=== PATIENT | female | born 1950 | race Caucasian/White ===

== ENCOUNTER 2017-08-04 13:24 | Inpatient (IN) | payer MEDICARE ==
--- NOTE | 2017-08-04 14:24 | XR ---
EXAMINATION TYPE: XR chest 2V DATE OF EXAM: 08/04/2017 COMPARISON: Chest x-ray August 14, 2016 HISTORY: History of COPD with chest pain and shortness of breath TECHNIQUE: Frontal and lateral views of the chest are obtained. FINDINGS: There is background chronic emphysematous change with left infrahilar scarring in bibasilar scarring and/or atelectasis redemonstrated. There is no no suspicious focal air space opacity, pleu ral effusion, or pneumothorax seen. The cardiac silhouette size is stable and upper limits of normal . There is partial visualization of surgical hardware in the right proximal humerus. IMPRESSION: Chronic emphysematous change with left lung scarring, no suspicious new acute pulmonary process.
[2017-08-04] MEDS ORDERED: ACETAMINOPHEN TAB 325 MG TAB PO PRN (14:45)
[2017-08-04] MEDS ORDERED: NALOXONE 0.4 MG/ML 1 ML VIAL IV PRN (14:45)
--- NOTE | 2017-08-04 14:56 | ED ---
General Adult HPI - General Chief complaint: Chest Pain Stated complaint: chest pain Time Seen by Provider: 08/04/17 13:28 Source: patient, RN notes reviewed, old records reviewed Mode of arrival: EMS Limitations: no limitations - History of Present Illness Initial comments: 66-year-old female transferred from outside hospital for evaluation of chest pain. Patient's pain began this morning. It is resolved at the time my evaluation. She describes it as substernal chest pain radiating to her jaw. Patient did have calmed. Recent medical history including intubation for what appears to be flash pulmonary edema and ST segment elevated NE. This EKG is not available for review of his obtained at outside hospital and she was transferred to [facility] in [place]. She was in the ICU for several days. She was successfully extubated and it was recommended that the patient undergo heart catheterization. She refused heart cath at that time. She was also diagnosed with pneumonia and treated. She denies cough. She has had some mild dyspnea which she attributes to her chronic COPD. She does have past medical history of congestive heart failure. - Related Data Home Medications Medication Instructions Recorded Confirmed ALPRAZolam [Xanax] 0.5 mg PO BID PRN 08/04/17 08/04/17 Acetaminophen Tab [Tylenol Tab] 500 mg PO Q6H PRN 08/04/17 08/04/17 Budesonide [Pulmicort] 0.5 mg INHALATION RT-BID 08/04/17 08/04/17 Cyanocobalamin (Vitamin B-12) 1,000 mcg PO DAILY 08/04/17 08/04/17 [Vitamin B-12] Ergocalciferol [Vitamin D2] 50,000 unit PO TU 08/04/17 08/04/17 Furosemide [Lasix] 20 mg PO DAILY 08/04/17 08/04/17 Gabapentin [Neurontin] 300 mg PO BID 08/04/17 08/04/17 Ipratropium-Albuterol Nebulize 3 ml INHALATION RT-BID 08/04/17 08/04/17 [Duoneb 0.5 mg-3 mg/3 ml Soln] Metoprolol Tartrate [Lopressor] 25 mg PO BID 08/04/17 08/04/17 predniSONE 10 mg PO DIRECTED 08/04/17 08/04/17 predniSONE See Taper PO DAILY 08/04/17 08/04/17 traMADol HCl [Ultram] 50 mg PO BID 08/04/17 08/04/17 Allergies Allergy/AdvReac Type Severity Reaction Status Date / Time codeine Allergy Rash/Hives Verified 08/04/17 14:27 Penicillins AdvReac Unknown Verified 08/04/17 14:27 Childhood Review of Systems ROS Statement: Those systems with pertinent positive or pertinent negative responses have been documented in the HPI. ROS Other: All systems not noted in ROS Statement are negative. 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 Absent: tenderness, meningismus Respiratory exam: Present: decreased breath sounds. Absent: respiratory distress, wheezes, rales Cardiovascular Exam: Present: regular rate, normal rhythm GI/Abdominal exam: Present: soft. Absent: distended, tenderness, guarding Extremities exam: Present: pedal edema (trace) Neurological exam: Present: alert, oriented X3, CN II-XII intact. Absent: motor sensory deficit Psychiatric exam: Present: normal affect, normal mood Skin exam: Present: warm, dry, intact. Absent: cyanosis, diaphoretic Course Vital Signs 08/04/17 08/04/17 13:27 14:31 Temperature 98.1 F Pulse Rate 74 68 Respiratory 24 20 Rate Blood Pressure 159/76 115/63 O2 Sat by Pulse 87 L 97 Oximetry - Reevaluation(s) Reevaluation #1: 08/04/17 14:53 Patient is chest pain-free while in the emergency department. EKG Findings - EKG Comments: EKG Findings:: EKG normal sinus rhythm, pulmonary disease pattern, incomplete right bundle, left anterior fascicular block, T-wave inversion in the lateral precordium. Rate of 76, CT interval 168, QRS duration 104, QTC 468. No ST segment depression. Medical Decision Making - Medical Decision Making 66-year-old female presenting for evaluation of chest pain from outside hospital. Patient was given aspirin, nitroglycerin, Lasix and started on heparin prior to transfer. Initial troponin was negative. There was a mild elevation in the BMP cording to the transferring physician. Chest x-ray showed CHF, this was repeated and shows no pulmonary edema, there is concern for COPD on x-ray. Patient had lateral EKG changes which are persistent on repeat EKG in the emergency department here. All laboratory studies will be repeated including troponin. Patient will be kept on heparin. Case is discussed with Dr. Valderrama, he will accept admission. Cardiology placed on consult. Disposition Clinical Impression: Unstable angina pectoris Disposition: ADMITTED IP TO THIS HOSP Condition: Stable Is patient prescribed a controlled substance at d/c from ED?: No Referrals: Arsh Dunn MD [Primary Care Provider] - 1-2 days Decision to Admit Reason: Admit from EC Decision Date: 08/04/17 Decision Time: 14:55
[2017-08-04 15:09] LABS: Basophils # (A) 0.1 k/uL (0-0.2); Basophils % (A) 0 %; Eosinophils # (A) 0.2 k/uL (0-0.7); Eosinophils % (A) 1 %; HCT 41.5 % (34.0-46.0); HGB 13.1 gm/dL (11.4-16.0); Hypochromasia Slight; Lymphocytes # (A) 2.8 k/uL (1.0-4.8); Lymphocytes % (A) 18 %; MCH 27.9 pg (25.0-35.0); MCHC 31.5 g/dL (31.0-37.0); MCV 88.5 fL (80.0-100.0); Mean Platelet Volume 6.7; Monocytes % (A) 6 %; Neutrophils # (A) 11.5 k/uL (1.3-7.7); Neutrophils % (A) 74 %; Platelet Count 302 k/uL (150-450); RBC 4.69 m/uL (3.80-5.40); RDW 14.9 % (11.5-15.5); WBC 15.6 k/uL (3.8-10.6)
[2017-08-04 15:22] LABS: ALT 57 U/L (9-52); AST 23 U/L (14-36); Albumin 3.9 g/dL (3.5-5.0); Alkaline Phosphatase 61 U/L (38-126); Blood Urea Nitrogen 24 mg/dL (7-17); Calcium 9.1 mg/dL (8.4-10.2); Chloride 91 mmol/L (98-107); Glucose 82 mg/dL (74-99); Magnesium 2.3 mg/dL (1.6-2.3); Partial Thromboplastin Time 23.6 sec (22.0-30.0); Prothrombin Time 10.1 sec (9.0-12.0); Sodium 139 mmol/L (137-145); Total Bilirubin 0.7 mg/dL (0.2-1.3); Total Protein 6.1 g/dL (6.3-8.2)
[2017-08-04 15:29] LABS: Anion Gap 7 mmol/L
[2017-08-04] MEDS: HEPARIN SODIUM,PORCINE 5,000 UNIT/ML 1 ML VIAL IV PRN ×2 (15:33→22:06)
[2017-08-04 15:34] LABS: Creatine Kinase MB 1.5 ng/mL (0.0-2.4); Troponin I 0.03 ng/mL (0.000-0.034)
[2017-08-04] MEDS: HEPARIN SODIUM,PORCINE/D5W PMX 25,000 UNIT in DEXTROSE/WATER 1 500ML.BAG IV SCH (15:34)
[2017-08-04 15:35] LABS: Carbon Dioxide 41 mmol/L (22-30)
[2017-08-04] MEDS ORDERED: ACETAMINOPHEN TAB 500 MG TAB PO PRN (15:38)
[2017-08-04] MEDS ORDERED: ALPRAZolam 0.5 MG TAB PO PRN (15:38)
[2017-08-04] MEDS: predniSONE 10 MG TAB PO SCH (15:55)
[2017-08-04] MEDS: traMADol 50 MG TAB PO SCH ×2 (15:55→20:38)
[2017-08-04] MEDS: GABAPENTIN 300 MG CAP PO SCH ×2 (16:41→20:38)
[2017-08-04] MEDS: IPRATROPIUM-ALBUTEROL 3 ML NEB INHALATION SCH ×2 (19:31→22:44)
[2017-08-04] MEDS: METOPROLOL TARTRATE 25 MG TAB PO SCH (20:38)
[2017-08-04] MEDS ORDERED: traMADol 50 MG TAB PO SCH (21:00)
[2017-08-04] MEDS ORDERED: GABAPENTIN 300 MG CAP PO SCH (21:00)
[2017-08-04 21:42] LABS: Troponin I 0.03 ng/mL (0.000-0.034)
[2017-08-05 03:57] LABS: Basophils % (A) 0 %; Eosinophils # (A) 0.1 k/uL (0-0.7); Eosinophils % (A) 1 %; HCT 39.8 % (34.0-46.0); HGB 12.3 gm/dL (11.4-16.0); Hypochromasia Slight; Lymphocytes # (A) 1.3 k/uL (1.0-4.8); Lymphocytes % (A) 10 %; MCH 27.5 pg (25.0-35.0); MCHC 30.8 g/dL (31.0-37.0); MCV 89.2 fL (80.0-100.0); Mean Platelet Volume 6.5; Monocytes # (A) 0.7 k/uL (0-1.0); Monocytes % (A) 6 %; Neutrophils # (A) 10.2 k/uL (1.3-7.7); Neutrophils % (A) 82 %; Platelet Count 234 k/uL (150-450); RBC 4.46 m/uL (3.80-5.40); RDW 14.3 % (11.5-15.5); WBC 12.4 k/uL (3.8-10.6)
[2017-08-05 04:48] LABS: Creatine Kinase MB 2.6 ng/mL (0.0-2.4); Troponin I 0.037 ng/mL (0.000-0.034)
[2017-08-05] MEDS: IPRATROPIUM-ALBUTEROL 3 ML NEB INHALATION SCH ×2 (05:24→20:31)
[2017-08-05] MEDS: traMADol 50 MG TAB PO SCH ×2 (05:42→15:00)
[2017-08-05] MEDS: FUROSEMIDE 20 MG TAB PO SCH (08:39)
[2017-08-05] MEDS: METOPROLOL TARTRATE 25 MG TAB PO SCH ×2 (08:39→20:44)
[2017-08-05] MEDS: predniSONE 10 MG TAB PO SCH (08:39)
[2017-08-05] MEDS: GABAPENTIN 300 MG CAP PO SCH ×2 (08:39→20:44)
[2017-08-05] MEDS ORDERED: predniSONE 10 MG TAB PO SCH (09:00)
--- NOTE | 2017-08-05 11:11 | CONS ---
CONSULTATION Yina Nguyen is a 66-year-old female who presented from an outside institution with recurrent chest discomfort. The chest discomfort was substernal, radiated to the jaw and through into the back. A 12-lead ECG showed ST-T abnormalities in V3 to V6 consistent with ST elevation with T-wave inversions. First two cardiac enzymes are normal. Third troponin was borderline abnormal. The troponins and the EKG changes are out of proportion to the level of her troponin. She is pain-free at this time. She is on IV heparin. PAST HISTORY: Her past history most recently was in [facility] in [place] on 07/23/2017 for respiratory failure. She was diagnosed with pneumonia. She was on IV antibiotics. Subsequently, they recommended a coronary angiography, which she refused. She has a history of COPD, obesity. At the age of 4, she had surgery her aorta, but she does not know the diagnosis nor the details of this. She does have at least mild aortic stenosis. PAST SURGICAL HISTORY: section, shoulder surgery, open heart surgery at the age of 4 years details which are not available, history of cholecystectomy, history of obesity, morbid, BMI greater than 40. SOCIAL HISTORY: She stopped smoking 7 years back. No alcohol use. Past history also includes hypertension. PHYSICAL EXAMINATION: On examination, her blood pressure is elevated 149/76 and 162/70 mmHg. Heart rate is in the 70s. She is afebrile, 96.9 degrees Fahrenheit. She is on steroids. White count is mildly elevated. She is afebrile. Breath sounds are decreased bilaterally. Heart sounds S1, S2 soft. There is soft ejection systolic murmur. ABDOMEN: Soft. Extremities are warm. She is on IV heparin. LABS: Labs are reviewed. The white count is 15.6 thousand. She is on steroids. She recently had respiratory failure and pneumonia and was treated in [facility] last month. Sodium was normal. Potassium was normal. Bicarb was 41. Kidney function is normal. Liver functions are normal. Troponin was 0.03, followed by 0.03 and then . IMPRESSION: 1. Borderline abnormal troponins with significantly abnormal ECG and patient presenting with chest discomfort radiating through to her back into her jaw. 2. Past history of smoking. 3. Past history of reconstructive surgery of the aorta at the age of 4 years. Details not available. 4. At least mild aortic stenosis with normal left ventricular systolic function. No mitral regurgitation. 5. Morbid obesity. 6. Hypertension. 7. Chronic obstructive pulmonary disease. SUGGEST: 1. D-dimer first and if this is normal then I will schedule her for coronary angiography. 2. Hypertension management. I will start her on losartan 50 mg p.o. daily. She will continue beta blockers for now and baby aspirin. I will also add statins. MMODL / IJN: [id number] /
[2017-08-05] MEDS ORDERED: ALPRAZolam 0.25 MG TAB PO PRN (11:39)
[2017-08-05] MEDS ORDERED: SODIUM CHLORIDE 0.9% 1,000 ML in EMPTY BAG 1 BAG IV ONE (11:39)
[2017-08-05] MEDS ORDERED: NITROGLYCERIN SL TABS 0.4 MG TAB SUBLINGUAL PRN (11:39)
[2017-08-05] MEDS ORDERED: ALPRAZolam 0.5 MG TAB PO PRN (11:39)
[2017-08-05] MEDS: LOSARTAN 50 MG TAB PO SCH (11:42)
--- NOTE | 2017-08-05 12:33 | P.HPIM ---
History of Present Illness 66-year-old pleasant female came in with complains of a chest pain and pressure like sensation which started today morning nonradiating in the retrosternal area in the left side, denied any increasing shortness of breath patient does have COPD uses 3 pillows which is not new patient denied any paroxysmal nocturnal dyspnea patient denied any excessive sweating patient's face has a chest pain radiated to the jaw lasted for few hours not associated be breathing not associated with food. Patient was recently discharged from [facility] in [place] which she was admitted in ICU was intubated apparently had a pneumonia at the time was treated for respiratory failure and cardiorespiratory arrest from the patient's history, patient does have also independent COPD uses 2 L of oxygen at home. Patient at this point of time denied any cough runny nose chest x-ray did not show any pneumonic process. Patient apparently was told have a cardiac catheter sensation in [facility] at that time patient declined to get that test done. Patient denied any history of sleep apnea. Patient quit smoking years ago. EKG here showed T- wave inversion in the anterior leads lung with mildly elevated troponin of 0.03 cardiology evaluated the patient they recommending cardiac catheterization to be done tomorrow. Review of Systems REVIEW OF SYSTEMS: CONSTITUTIONAL: No fever, no malaise, no fatigue. HEENT: No recent visual problems or hearing problems. Denied any sore throat. CARDIOVASCULAR: No orthopnea, PND, no palpitations, no syncope. PULMONARY: No shortness of breath, no cough, no hemoptysis. GASTROINTESTINAL: No diarrhea, no nausea, no vomiting, no abdominal pain. Normoactive bowel sounds. NEUROLOGICAL: No headaches, no weakness, no numbness. HEMATOLOGICAL: Denies any bleeding or petechiae. GENITOURINARY: Denies any burning micturition, frequency, or urgency. MUSCULOSKELETAL/RHEUMATOLOGICAL: Denies any joint pain, swelling, or any muscle pain. ENDOCRINE: Denies any polyuria or polydipsia. The rest of the 14-point review of systems is negative. Past Medical History Past Medical History: Asthma, Coronary Artery Disease (CAD), Heart Failure, COPD , Fibromyalgia, Hyperlipidemia, Hypertension, Osteoarthritis (OA), Pneumonia Additional Past Medical History / Comment(s): home o2 2- 2.5 liters nc. 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4) History of Any Multi-Drug Resistant Organisms: None Reported Past Surgical History: Section, Cholecystectomy, Coronary Bypass/CABG Additional Past Surgical History / Comment(s): was cross eyed-had sx to correct , x2 c-sections Past Anesthesia/Blood Transfusion Reactions: No Reported Reaction Additional Past Anesthesia/Blood Transfusion Reaction / Comment(s): pt stated i think i had blood transufion when i had open heart Smoking Status: Former smoker - Past Family History Father Family Medical History: No Reported History Mother Family Medical History: No Reported History Medications and Allergies Home Medications Medication Instructions Recorded Confirmed Type ALPRAZolam [Xanax] 0.5 mg PO BID PRN 08/04/17 08/04/17 History Acetaminophen Tab [Tylenol Tab] 500 mg PO Q6H PRN 08/04/17 08/04/17 History Budesonide [Pulmicort] 0.5 mg INHALATION RT-BID 08/04/17 08/04/17 History Cyanocobalamin (Vitamin B-12) 1,000 mcg PO DAILY 08/04/17 08/04/17 History [Vitamin B-12] Ergocalciferol [Vitamin D2] 50,000 unit PO TU 08/04/17 08/04/17 History Furosemide [Lasix] 20 mg PO DAILY 08/04/17 08/04/17 History Gabapentin [Neurontin] 300 mg PO BID 08/04/17 08/04/17 History Ipratropium-Albuterol Nebulize 3 ml INHALATION RT-BID 08/04/17 08/04/17 History [Duoneb 0.5 mg-3 mg/3 ml Soln] Metoprolol Tartrate [Lopressor] 25 mg PO BID 08/04/17 08/04/17 History predniSONE 10 mg PO DIRECTED 08/04/17 08/04/17 History predniSONE See Taper PO DAILY 08/04/17 08/04/17 History traMADol HCl [Ultram] 50 mg PO BID 08/04/17 08/04/17 History Allergies Allergy/AdvReac Type Severity Reaction Status Date / Time codeine Allergy Rash/Hives Verified 08/04/17 14:27 Penicillins AdvReac Unknown Verified 08/04/17 14:27 Childhood Physical Exam Vitals: Vital Signs Temp Pulse Pulse Resp BP BP Pulse Ox 08/05/17 08:25 96.9 F L 78 19 162/72 96 08/05/17 05:36 74 08/05/17 05:27 74 08/05/17 03:29 98 F 69 16 149/76 95 08/05/17 00:00 98.5 F 70 16 146/67 94 L 08/04/17 22:53 82 08/04/17 22:45 80 08/04/17 20:00 97.8 F 92 16 149/62 92 L 08/04/17 19:41 97 08/04/17 19:40 82 08/04/17 19:32 80 08/04/17 17:40 97.9 F 77 16 132/68 96 08/04/17 16:03 98 F 77 18 129/60 98 08/04/17 15:37 78 18 129/59 98 08/04/17 14:31 68 20 115/63 97 08/04/17 13:27 98.1 F 74 24 159/76 87 L Intake and Output 08/04/17 08/05/17 08/05/17 22:59 06:59 14:59 Intake Total 688.538 535.371 Output Total 300 Balance 688.538 235.371 Intake: IV 320 360 0.9 160 160 Heparin Sodium,Porcine/ 160 200 D5w Pmx 25,000 unit In Dextrose/Water 1 500ml. bag @ 9.5 UNITS/KG/HR 19. 82 mls/hr IV .Q24H [facility] Rx #:[id number] Intake, IV Titration 128.538 175.371 Amount Heparin Sodium,Porcine/ 128.538 175.371 D5w Pmx 25,000 unit In Dextrose/Water 1 500ml. bag @ 9.5 UNITS/KG/HR 19. 82 mls/hr IV .Q24H [facility] Rx #:[id number] Oral 240 Output: Urine 300 Other: Weight 102.8 kg PHYSICAL EXAMINATION: GENERAL: The patient is alert and oriented x3, not in any acute distress. Obese HEENT: Pupils are round and equally reacting to light. EOMI. No scleral icterus. No conjunctival pallor. Normocephalic, atraumatic. No pharyngeal erythema. No thyromegaly. CARDIOVASCULAR: S1 and S2 present. No murmurs, rubs, or gallops. PULMONARY: Diminished air entry into bilateral lung owens no wheezing or crackles was appreciated ABDOMEN: Soft, nontender, nondistended, normoactive bowel sounds. No palpable organomegaly. MUSCULOSKELETAL: No joint swelling or deformity. EXTREMITIES: No cyanosis, clubbing, or pedal edema. NEUROLOGICAL: Gross neurological examination did not reveal any focal deficits. SKIN: No rashes. Results CBC & Chem 7: 08/05/17 03:43 08/04/17 14:48 Labs: Abnormal Lab Results - Last 24 Hours (Table) 08/04/17 08/04/17 08/04/17 Range/Units 14:48 14:48 14:48 WBC 15.6 H (3.8-10.6) k/uL MCHC (31.0-37.0) g/dL Neutrophils # 11.5 H (1.3-7.7) k/uL APTT (22.0-30.0) sec Chloride 91 L (98-107) mmol/L Carbon Dioxide 41 H* (22-30) mmol/L BUN 24 H (7-17) mg/dL ALT 57 H (9-52) U/L Total Creatine Kinase 29 L (30-135) U/L CK-MB (CK-2) (0.0-2.4) ng/mL Troponin I (0.000-0.034) ng/mL Total Protein 6.1 L (6.3-8.2) g/dL 08/04/17 08/05/17 08/05/17 Range/Units 20:44 03:43 03:43 WBC 12.4 H (3.8-10.6) k/uL MCHC 30.8 L (31.0-37.0) g/dL Neutrophils # 10.2 H (1.3-7.7) k/uL APTT 34.8 H (22.0-30.0) sec Chloride (98-107) mmol/L Carbon Dioxide (22-30) mmol/L BUN (7-17) mg/dL ALT (9-52) U/L Total Creatine Kinase (30-135) U/L CK-MB (CK-2) 2.6 H* (0.0-2.4) ng/mL Troponin I 0.037 H* (0.000-0.034) ng/mL Total Protein (6.3-8.2) g/dL 08/05/17 Range/Units 03:43 WBC (3.8-10.6) k/uL MCHC (31.0-37.0) g/dL Neutrophils # (1.3-7.7) k/uL APTT 65.0 H (22.0-30.0) sec Chloride (98-107) mmol/L Carbon Dioxide (22-30) mmol/L BUN (7-17) mg/dL ALT (9-52) U/L Total Creatine Kinase (30-135) U/L CK-MB (CK-2) (0.0-2.4) ng/mL Troponin I (0.000-0.034) ng/mL Total Protein (6.3-8.2) g/dL Assessment and Plan Plan: -Chest pain: Possibility of non-ST elevation microinfarction or unstable angina patient will undergo cardiac catheterization tomorrow -COPD without any acute exacerbation -Hypertension -Type 2 diabetes mellitus with diabetic peripheral neuropathy -Hyperlipidemia -Coronary artery disease -Fibromyalgia -Chronic respiratory failure oxygen dependent at home. Above-mentioned chronic medical problems patient will be resumed and continued on appropriate home medications.
--- NOTE | 2017-08-05 13:30 | ECHOF ---
Referral Reason:chest pain MEASUREMENTS -------- HEIGHT: 157.5 cm WEIGHT: 102.5 kg BP: 162/72 RVIDd: 2.7 cm (< 3.3) IVSd: 1.0 cm (0.6 - 1.1) LVIDd: 4.7 cm (3.9 - 5.3) LVPWd: 1.1 cm (0.6 - 1.1) IVSs: 1.3 cm LVIDs: 3.3 cm LVPWs: 1.4 cm LAESV Index (A-L): 23.05 ml/m Ao Diam: 3.5 cm (2.0 - 3.7) AV Cusp: 1.2 cm (1.5 - 2.6) LA Diam: 2.8 cm (2.7 - 3.8) MV E Kwadwo: 1.01 m/s MV DecT: 187 ms MV A Kwadwo: 1.15 m/s MV E/A Ratio: 0.89 AV maxP.09 mmHg AV meanP.25 mmHg RAP: 5.00 mmHg RVSP: 10.86 mmHg FINDINGS -------- Sinus rhythm. This was a technically adequate study. The left ventricular size is normal. Left ventricular wall thickness is normal. Overall left vent ricular systolic function is normal with, an EF between 55 - 60 %. The right ventricle is normal in size and function. Normal LA size by volume 22+/-6 ml/m2. The right atrium is normal in size. There is moderate aortic valve sclerosis. There is no evidence of aortic regurgitation. There is moderate aortic stenosis present. Peak/mean gradient across the Aortic Valve is 42.09mmHg / 24.25mm Hg. The mitral valve leaflets are mildly thickened. Mild mitral annular calcification present. There is trace to mild mitral regurgitation. Trace tricuspid regurgitation present. Right ventricular systolic pressure is normal at < 35 mmHg. There is no evidence of pulmonary hypertension. The pulmonic valve was not well visualized. The aortic root size is normal. Normal inferior vena cava with normal inspiratory collapse consistent with estimated right atrial pre ssure of 5 mmHg. There is no pericardial effusion. CONCLUSIONS -------- 1. Sinus rhythm. 2. This was a technically adequate study. 3. The left ventricular size is normal. 4. Left ventricular wall thickness is normal. 5. Normal LA size by volume 22+/-6 ml/m2. 6. There is moderate aortic valve sclerosis. 7. There is moderate aortic stenosis present. 8. Peak/mean gradient across the Aortic Valve is 42.09mmHg / 24.25mmHg. 9. The mitral valve leaflets are mildly thickened. 10. Mild mitral annular calcification present. 11. There is trace to mild mitral regurgitation. 12. Trace tricuspid regurgitation present. 13. Right ventricular systolic pressure is normal at < 35 mmHg. 14. There is no evidence of pulmonary hypertension. 15. The pulmonic valve was not well visualized. 16. The aortic root size is normal. 17. There is no pericardial effusion. LOFTSMAN/WOMAN: Nacho Ellis RDCS
--- NOTE | 2017-08-05 13:33 | CT ---
EXAMINATION TYPE: CT angio chest DATE OF EXAM: 08/05/2017 COMPARISON: NONE HISTORY: Chest pain, dissection CT DLP: 1226.5 mGycm. Automated Exposure Control for Dose Reduction was Utilized. CONTRAST: CTA scan of the thorax is performed without and with IV Contrast, patient injected with 100 mL of Iso walter 370, pulmonary embolism protocol. 3-D MIP Images are created on CT scanner and reviewed. FINDINGS: LUNGS: There is mild centrilobular emphysematous change most pronounced within the lung apices. Scatt ered areas of groundglass opacity are seen within the right upper lobe peripherally such as on series 5 image 21. These are also seen to a lesser degree within the right lower lobe peribronchial cuffing is also seen diffusely and is mild. No focal consolidation is seen. Right middle lobe elongated nodu le abuts the mediastinal border and measures 1.7 x 1.3 x 2.0 cm on series 3 image 38 and series 9 kina ge 39. There is no pleural effusion or pneumothorax seen. The tracheobronchial tree is patent. MEDIASTINUM: There is no CT evidence for central pulmonary embolism. No gross evidence of dissection is seen. The crescentic hypoattenuation of the anterior left lateral and posterior right lateral asc ending thoracic aorta just above the aortic root likely represents pulsation artifact from tachycardi a. Very less likely this could represent wall thickening and aortitis. Similar artifact is seen of th e main pulmonary artery. No surrounding inflammatory fat stranding is seen. Ascending thoracic aorta is within normal limits of size measuring 3.0 cm as is the aortic root measuring 3.1 cm. Main pulmona ry artery is upper limits of normal size measuring 2.9 cm. There are no greater than 1 cm hilar or me diastinal lymph nodes. Heart is mildly enlarged. OTHER: There is a 7 mm arterially enhancing focus within the right hepatic lobe on series 6 image 61. This could represent intrahepatic lesion or arterial portal shunt. IMPRESSION: 1. No gross evidence of thoracic aortic dissection or upper abdominal aortic dissection although the exam is slightly limited by presumed tachycardia. Presumable artifact is seen surrounding the ascendi ng thoracic aorta just above the aortic root as this is also seen of the main pulmonary artery. Very less likely this could relate to mild aortitis. If there is further clinical concern repeat scan with beta jordan could be performed. 2. Multifocal groundglass opacities, right middle lobe 2.0 cm elongated pulmonary nodule, and centril obular emphysema with mild peribronchial cuffing diffusely. These findings may be inflammatory or inf ectious in etiology. Short-term follow-up CT is recommended in 3 months to ensure that these do not r epresent a neoplastic process. 3. 7 mm arterial enhancing focus within the right hepatic lobe that may represent a true hepatic lesi on or arterial portal shunt. This could be further characterized with enhanced abdominal MRI.
[2017-08-05] MEDS ORDERED: predniSONE 20 MG TAB PO ONE (14:00)
[2017-08-05] MEDS: BUDESONIDE 0.5 MG/2 ML NEBU INHALATION SCH (16:14)
[2017-08-05] MEDS: HEPARIN SODIUM,PORCINE/D5W PMX 25,000 UNIT in DEXTROSE/WATER 1 500ML.BAG IV SCH (17:16)
[2017-08-06] MEDS: IPRATROPIUM-ALBUTEROL 3 ML NEB INHALATION PRN ×2 (00:37→16:11)
[2017-08-06] MEDS: HEPARIN SODIUM,PORCINE/D5W PMX 25,000 UNIT in DEXTROSE/WATER 1 500ML.BAG IV SCH (05:55)
[2017-08-06] MEDS: GABAPENTIN 300 MG CAP PO SCH (06:23)
[2017-08-06] MEDS: LOSARTAN 50 MG TAB PO SCH (06:23)
[2017-08-06] MEDS: METOPROLOL TARTRATE 25 MG TAB PO SCH (06:23)
[2017-08-06 06:32] LABS: Basophils % (A) 0 %; Eosinophils # (A) 0.1 k/uL (0-0.7); Eosinophils % (A) 1 %; HCT 38.6 % (34.0-46.0); HGB 12.1 gm/dL (11.4-16.0); Hypochromasia Slight; Lymphocytes # (A) 1.1 k/uL (1.0-4.8); Lymphocytes % (A) 9 %; MCH 27.2 pg (25.0-35.0); MCHC 31.2 g/dL (31.0-37.0); MCV 87.2 fL (80.0-100.0); Monocytes # (A) 0.9 k/uL (0-1.0); Monocytes % (A) 8 %; Neutrophils # (A) 9.8 k/uL (1.3-7.7); Neutrophils % (A) 81 %; Platelet Count 228 k/uL (150-450); RBC 4.43 m/uL (3.80-5.40); RDW 14.2 % (11.5-15.5); WBC 12.1 k/uL (3.8-10.6)
[2017-08-06] MEDS ORDERED: ATORVASTATIN 80 MG TAB PO ONE (08:00)
[2017-08-06] MEDS ORDERED: ASPIRIN 325 MG TAB PO ONE (08:00)
[2017-08-06] MEDS ORDERED: predniSONE 10 MG TAB PO SCH (09:00)
[2017-08-06 09:49] VITALS: RESP 16
[2017-08-06] MEDS: IPRATROPIUM-ALBUTEROL 3 ML NEB INHALATION SCH (10:42)
[2017-08-06] MEDS ORDERED: MIDAZOLAM 2 MG/2 ML VIAL ONE (10:49)
[2017-08-06] MEDS ORDERED: VERAPAMIL 2.5 MG/ML 2 ML AMP ONE (10:49)
[2017-08-06] MEDS ORDERED: IV FLUID CONTINUATION 1,000 ML IV ONE (11:11)
[2017-08-06] MEDS ORDERED: diphenhydrAMINE 50 MG/ML 1 ML VIAL ONE (11:23)
[2017-08-06] MEDS ORDERED: diphenhydrAMINE 50 MG/ML 1 ML VIAL IVP ONE (11:35)
[2017-08-06] MEDS ORDERED: LIDOCAINE 2% SYG (PF) 100 MG/5 ML MISCELLANE ONE (11:36)
[2017-08-06] MEDS ORDERED: MIDAZOLAM 2 MG/2 ML VIAL IV ONE (11:36)
[2017-08-06] MEDS: VERAPAMIL SYRINGE (5 MG/10 ML) INTRAARTER ONE ×2 (11:37→12:00)
[2017-08-06] MEDS: BUDESONIDE 0.5 MG/2 ML NEBU INHALATION SCH (11:41)
[2017-08-06] MEDS ORDERED: IOPAMIDOL-370 100ML BTL INJ ONE (11:50)
[2017-08-06] MEDS ORDERED: RX INFO: IV CONTRAST WAS GIVEN 1 EACH MISC MISCELLANE PRN (12:10)
[2017-08-06] MEDS ORDERED: SODIUM CHLORIDE 0.9% 1,000 ML IV SCH (12:15)
[2017-08-06] MEDS: traMADol 50 MG TAB PO SCH (13:43)
[2017-08-06] MEDS: FUROSEMIDE 20 MG TAB PO SCH (13:44)
--- NOTE | 2017-08-06 14:51 | CC ---
CARDIAC CATHETERIZATION REPORT DATE OF SERVICE: 08/06/2017 PROCEDURE: Left heart catheterization and coronary angiography. PERFORMED BY: Dr. Chelsea Orona. SEDATION: Moderate conscious sedation time was 22 minutes. CLINICAL INFORMATION: Mrs. Yina Nguyen is a 66-year-old lady with a history of severe COPD, past history of smoking, who was recently hospitalized at [place], with respiratory failure and was on a vent. This lady came in with chest discomfort, had a borderline troponin, not clearly suggestive of [id number] AL, but had new EKG changes and was therefore advised cardiac catheterization. Aortic stenosis was noted on echo with a gradient of about 24 mmHg, which was a mean gradient. I saw the patient this morning and explained to her the rationale, risks, benefits, and options related to cardiac cath. I answered all questions. She understood all details and wished to proceed with the procedure. PROCEDURE NOTE: Under local anesthesia and strict aseptic precautions, a 6-Uzbek introducer was placed in the right radial artery. Using Ultima 1 catheter I performed selective coronary angiography of the left coronary artery and used a standard right Gerald catheter for right coronary artery. Using the same catheter, I checked LV pressures but did not perform an LV-gram. There was a pullback gradient of about 33 mmHg across the aortic valve. The patient did not receive any IV heparin, but she was recently on heparin up on the telemetry unit. The sheath was taken out and TR band applied and saturation in the fingers of the right hand was about 95%. CARDIAC CATHETERIZATION FINDINGS: The left ventricular end-diastolic pressure was 20 mmHg and there was a gradient of 33 mmHg across aortic valve based on the pull back gradient. CORONARY ANGIOGRAPHY FINDINGS: LEFT MAIN CORONARY ARTERY: Long, patent disease-free vessel that bifurcates into LAD and circumflex. LEFT ANTERIOR DESCENDING CORONARY ARTERY: Good caliber vessel extends along the anterior wall, and there is a large caliber, large distribution vessel that supplies a sizable amount of myocardium. It gives off several septal branches, smaller diagonal branches, has no obstructive CAD and supplies a sizable amount of myocardium. There is no significant disease in the form. There is no significant disease in the LAD system. LEFT POSTERIOR CIRCUMFLEX CORONARY ARTERY: Technically nondominant vessel, relatively small in caliber and distribution, has no significant disease, has minor irregularities. RIGHT CORONARY ARTERY a very large dominant vessel very tortuous. No significant disease, distally bifurcates into a large PDA and PLV, both of which supply a fair amount of myocardium. No significant disease noted. FINAL IMPRESSION: This patient has a right-dominant system, no significant coronary artery disease, elevated filling pressures with an end-diastolic pressure of 20 mmHg and a pullback gradient of 33 mmHg across the aortic valve suggestive of moderate aortic stenosis. RECOMMENDATIONS: From a coronary artery disease standpoint and aortic valve disease standpoint, medical therapy is the best approach for this patient. Findings were discussed with the patient and family and I also spoke to Dr. Garza. The patient was sent back to the floor in a stable condition. MMODL / IJN: [id number] /
--- NOTE | 2017-08-06 16:13 | P.CNPUL ---
History of Present Illness Consult date: 08/06/17 Reason for consult: dyspnea, chest pain Chief complaint: Chest pain, shortness of breath History of present illness: Mrs. Nguyen is a 66-year-old white female patient of Dr. Dunn, who presented to the emergency department on 08/04/2017 at 1324 per EMS from an outside institution with a chief complaint of substernal chest discomfort, with radiation to the jaw and through into the back. Patient has an underlying advanced COPD, with chronic hypoxemic respiratory failure, prednisone dependent , with an FEV1 of 22% of predicted, consistent with GOLD stage IV COPD. At twelve-lead EKG showed ST/T-wave abnormalities in V3 to V6 consistent with ST elevation with T-wave inversions. First 2 cardiac enzymes were normal, third troponin was borderline abnormal at 0.037. Her proBNP was 2960. On presentation her white count was 15.6, hemoglobin was 13.1, d-dimer was -0.41, sodium was 139, potassium is 4.0, chloride is 91, CO2 is 41, B1 is 24, creatinine 0.60. Patient has some chronic dyspnea and orthopnea related to her advanced chronic lung disease, and this has not changed with this episode of chest pain. She denies any chest congestion, cough or sputum production. She was recently hospitalized at the [facility] in [place] on 07/23/2017 for respiratory failure, related to an acute pneumonia. She was treated with IV antibiotics, was successfully extubated, clinically improved. She was told she had positive cardiac enzymes during that admission, and had a mild PR. She was recommended To have a heart catheterization however she refused. Past medical history also includes hypertension, obesity, fibromyalgia, hyperlipidemia, osteoarthritis, his pneumonia, anxiety, nicotine dependence, currently in remission. 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 Patient states she quit many years ago, but she carries over [id number] smoking history of at least one pack a day. She underwent cardiac catheterization today on 08/06/2017 and was found to have no significant coronary artery disease, patent left main coronary artery, no significant disease in the LAD, RCA. Minor irregularities in the left posterior circumflex. End-diastolic pressure was elevated at 20 mmHg, patient was found to have moderate aortic stenosis with a pullback gradient of 33 mmHg across the aortic valve. Patient was recommended medical treatment or discharge from cardiac standpoint. Chest x-ray showed chronic emphysematous change with left lung scarring, but no suspicious new acute pulmonary process. CT angios were completed and showed no evidence for central pulmonary embolism, no evidence of aortic dissection, mild central lobar emphysematous change more pronounced at the apices of the lungs, and scattered areas of groundglass opacity within the right upper lobe peripherally and to a lesser degree within the right lower lobe. No focal consolidation, pleural effusion or pneumothorax. Review of Systems All systems: negative Constitutional: Denies chills, Denies fever Eyes: denies blurred vision, denies pain Ears, nose, mouth and throat: Denies headache, Denies sore throat Cardiovascular: Reports chest pain (Chest pain with radiation to the jaw, and radiation through into the back), Denies shortness of breath Respiratory: Denies cough Gastrointestinal: Denies abdominal pain, Denies diarrhea, Denies nausea, Denies vomiting Genitourinary: Denies dysuria, Denies hematuria Musculoskeletal: Denies myalgias Integumentary: Denies pruritus, Denies rash Neurological: Denies numbness, Denies weakness Psychiatric: Denies anxiety, Denies depression Endocrine: Denies fatigue, Denies weight change Past Medical History Past Medical History: Asthma, Coronary Artery Disease (CAD), Heart Failure, COPD , Fibromyalgia, Hyperlipidemia, Hypertension, Osteoarthritis (OA), Pneumonia Additional Past Medical History / Comment(s): home o2 2- 2.5 liters nc. 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4) History of Any Multi-Drug Resistant Organisms: None Reported Past Surgical History: Section, Cholecystectomy, Coronary Bypass/CABG Additional Past Surgical History / Comment(s): was cross eyed-had sx to correct , x2 c-sections Past Anesthesia/Blood Transfusion Reactions: No Reported Reaction Additional Past Anesthesia/Blood Transfusion Reaction / Comment(s): pt stated i think i had blood transufion when i had open heart Smoking Status: Former smoker - Past Family History Father Family Medical History: No Reported History Mother Family Medical History: No Reported History Medications and Allergies Home Medications Medication Instructions Recorded Confirmed Type ALPRAZolam [Xanax] 0.5 mg PO BID PRN 08/04/17 08/04/17 History Acetaminophen Tab [Tylenol] 500 mg PO Q6H PRN 08/04/17 08/04/17 History Budesonide [Pulmicort] 0.5 mg INHALATION RT-BID 08/04/17 08/04/17 History Cyanocobalamin (Vitamin B-12) 1,000 mcg PO DAILY 08/04/17 08/04/17 History [Vitamin B-12] Ergocalciferol [Vitamin D2 50,000 unit PO TU 08/04/17 08/04/17 History (DRISDOL)] Furosemide [Lasix] 20 mg PO DAILY 08/04/17 08/04/17 History Gabapentin [Neurontin] 300 mg PO BID 08/04/17 08/04/17 History Metoprolol Tartrate [Lopressor] 25 mg PO BID 08/04/17 08/04/17 History traMADol HCl [Ultram] 50 mg PO BID 08/04/17 08/04/17 History Ipratropium-Albuterol Nebulize 3 ml INHALATION RT-BID #0 08/06/17 08/04/17 Rx [Duoneb 0.5 mg-3 mg/3 ml Soln] Losartan [Cozaar] 50 mg PO DAILY #30 tab 08/06/17 Rx predniSONE 10 mg PO DIRECTED #18 tab 08/06/17 Rx Allergies Allergy/AdvReac Type Severity Reaction Status Date / Time codeine Allergy Rash/Hives Verified 08/04/17 14:27 Penicillins AdvReac Unknown Verified 08/04/17 14:27 Childhood Physical Exam Vitals: Vital Signs Temp Pulse Pulse Pulse Pulse Resp BP 08/06/17 14:05 73 16 143/68 08/06/17 13:35 72 16 134/65 08/06/17 13:05 16 08/06/17 12:50 16 08/06/17 12:35 16 08/06/17 12:20 72 16 125/60 08/06/17 10:54 80 08/06/17 10:42 80 08/06/17 09:30 97.4 F L 67 16 08/06/17 06:20 72 08/06/17 03:40 70 66 18 08/06/17 00:52 84 08/06/17 00:40 84 08/05/17 23:45 08/05/17 23:35 08/05/17 23:20 80 18 08/05/17 23:10 70 18 08/05/17 23:05 98.1 F 70 18 08/05/17 20:42 85 16 08/05/17 20:31 80 16 08/05/17 20:30 97.6 F 85 85 16 08/05/17 16:25 78 16 08/05/17 16:15 77 08/05/17 16:00 77 18 BP Pulse Ox 08/06/17 14:05 94 L 08/06/17 13:35 97 08/06/17 13:05 08/06/17 12:50 08/06/17 12:35 08/06/17 12:20 94 L 08/06/17 10:54 08/06/17 10:42 08/06/17 09:30 127/61 99 08/06/17 06:20 141/65 08/06/17 03:40 132/62 97 08/06/17 00:52 08/06/17 00:40 08/05/17 23:45 122/70 08/05/17 23:35 140/68 08/05/17 23:20 144/69 89 L 08/05/17 23:10 08/05/17 23:05 139/69 96 08/05/17 20:42 08/05/17 20:31 08/05/17 20:30 144/87 99 08/05/17 16:25 08/05/17 16:15 08/05/17 16:00 133/62 93 L Intake and Output 08/06/17 08/06/17 08/06/17 06:59 14:59 22:59 Intake Total 331.936 100 Balance 331.936 100 Intake: IV 100 Intake, IV Titration 331.936 Amount Heparin Sodium,Porcine/ 331.936 D5w Pmx 25,000 unit In Dextrose/Water 1 500ml. bag @ 9.5 UNITS/KG/HR 19. 82 mls/hr IV .Q24H [facility] Rx #:[id number] Oral 0 Other: Voiding Method Bedside Commode # Voids 3 Weight 102.1 kg - Constitutional Physical exam reveals a 66-year-old white female patient, obese, in no acute distress. Currently on 2 L per nasal cannula, in no distress, TR band on the right radial artery. General appearance: morbidly obese - EENT Eyes: EOMI, PERRLA ENT: NA/AT Ears: bilateral: normal - Neck Neck: no lymphadenopathy, normal ROM Carotids: bilateral: upstroke normal Thyroid: bilateral: normal size - Respiratory Respiratory: bilateral: diminished - Cardiovascular Rhythm: regular Heart sounds: normal: S1, S2 ankle Peripheral Edema: bilateral: Trace radial pulse Peripheral Pulses: bilateral: Normal dorsalis pedis Peripheral Pulses: bilateral: Normal - Gastrointestinal General gastrointestinal: no organomegaly, soft, no tenderness - Integumentary Integumentary: normal turgor - Neurologic Neurologic: CNII-XII intact - Musculoskeletal Musculoskeletal: gait normal - Psychiatric Psychiatric: A&O x's 3, appropriate affect, intact judgment & insight Results - Laboratory Findings CBC and BMP: 08/06/17 06:06 08/04/17 14:48 PT/INR, D-dimer PT 10.1 sec (9.0-12.0) 08/04/17 14:48 INR 1.0 (<1.2) 08/04/17 14:48 D-Dimer 0.41 mg/L FEU (<0.60) 08/05/17 09:59 Abnormal lab findings: Abnormal Labs 08/04/17 08/04/17 08/04/17 14:48 14:48 14:48 WBC 15.6 H MCHC Neutrophils # 11.5 H APTT Chloride 91 L Carbon Dioxide 41 H* BUN 24 H ALT 57 H Total Creatine Kinase 29 L CK-MB (CK-2) Troponin I Total Protein 6.1 L 08/04/17 08/05/17 08/05/17 20:44 03:43 03:43 WBC 12.4 H MCHC 30.8 L Neutrophils # 10.2 H APTT 34.8 H Chloride Carbon Dioxide BUN ALT Total Creatine Kinase CK-MB (CK-2) 2.6 H* Troponin I 0.037 H* Total Protein 08/05/17 08/06/17 08/06/17 03:43 06:06 06:06 WBC 12.1 H MCHC Neutrophils # 9.8 H APTT 65.0 H 50.3 H Chloride Carbon Dioxide BUN ALT Total Creatine Kinase CK-MB (CK-2) Troponin I Total Protein - Diagnostic Findings Chest x-ray: report reviewed, image reviewed CT scan - chest: report reviewed, image reviewed Additional studies: Twelve-lead EKG reviewed Assessment and Plan Plan: Assessment: #1. Chest pain, borderline troponin, cardiac catheterization revealed no significant coronary artery disease #2. History of advanced COPD, GOLD stage IV, with underlying FEV1 of 22% of predicted, with chronic hypoxic and hypercapnic respiratory failure, prednisone dependent. Currently stable, without any evidence of acute exacerbation #3. Recent pneumonia, with acute respiratory failure, requiring mechanical ventilation. She was hospitalized at [facility] in [place] on July 23 2017. Patient was treated with antibiotics, recovered #4. Hyperlipidemia #5. 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 Nicotine dependence, currently in remission, patient carries a 40+-pack- year smoking history #7. Morbid obesity Plan: Patient is stable from pulmonary standpoint, CT angios and chest x-ray were both reviewed by Dr. Mitchell, with no acute findings. Clinically patient is stable, no chest pain, she underwent heart catheterization refer to the procedure note by Dr. EBONY Orona. Patient can follow up with Dr. Simons on an outpatient basis, she can continue on her maintenance inhalers and nebulized treatments. I performed a history & physical examination of the patient and discussed their management with my nurse practitioner, Milly Quezada. I reviewed the nurse practitioner's note and agree with the documented findings and plan of care. Lung sounds are diminished. The findings and the impression was discussed with the patient. I attest to the documentation by the nurse practitioner. Time with Patient: Greater than 30
[2017-08-06 17:15] VITALS: BP 135/60; PULSE 75; TEMP 97.9
[2017-08-07] MEDS ORDERED: CYANOCOBALAMIN 500 MCG TAB PO SCH (09:00)
--- NOTE | 2017-08-11 07:49 | CDI ---
Last Revision, January 2017 Documentation Clarification Form Date: 08/11/17 From: Sandra Jasiel Brianne Michele, Lead Software Developer Hours-8:30 am & 5 pm M-F Admit Date: 08/04/2017 2:45:00 PM Patient Name: Yina Nguyen Visit Number: [id number] Discharge Date: ATTENTION: The Clinical Documentation Specialists (CDI) and [facility] Coding Staff appreciate your assistance in clarifying documentation. Please respond to the clarification below the line at the bottom and electronically sign. The CDI & [facility] Coding staff will review the response and follow-up if needed. Please note: Queries are made part of the Legal Health Record. If you have any questions, please contact the author of this message via ITS. Dr. Jen Lieberman Patient with heart failure and hypertension. Comorbidities: aortic stenosis, chronic respiratory failure (hypoxia & hypercapnia), emphysema, DM with polyneuropathy, no significant coronary artery disease, s/p aortic repair for congenital defect at 4 yrs of age. VS/Pulse OX: T-98.1, P-74, R-24, O2 sat- 87 BNP: 2960 Echocardiogram Results: EF between 55-60%, right systolic pressure is normal at <35 mmHg Chest X Ray: no new acute pulmonary process. Treatment: Lasix 20 mg po daily In your professional opinion, can you please clarify the acuity and type of CHF if known? Systolic Heart Failure: Diastolic Heart Failure: Systolic & Diastolic Heart Failure: Acute Chronic Acute on Chronic Heart Failure Unable to Determine Other, please specify Please continue to document in your progress notes and discharge summary in order to capture severity of illness and risk of mortality. Include clinical findings that support your diagnosis. chronic diastolic CHF MTDD
[2017-08-12] MEDS ORDERED: predniSONE 10 MG TAB PO SCH (09:00)
[2017-08-12] MEDS ORDERED: ERGOCALCIFEROL 50,000 UNIT CAP PO SCH (12:00)
--- NOTE | 2017-08-25 15:46 | P.DS ---
Providers Date of admission: 08/04/17 14:45 Attending physician: Demetri Valderrama MD Consults: 08/04/17 14:46 Consult Physician Routine Consulting Provider: Ángel Garza Consult Reason/Comments: Unstable angina Do you want consulting provider notified?: Yes 08/06/17 08:34 Consult Physician Urgent Consulting Provider: Jeny Gallegos Consult Reason/Comments: pt known to you, history of emphysema Do you want consulting provider notified?: Yes Primary care physician: Arsh Dunn Hospital Course: FInal Diagnoses: -Chest pain: Possibility of non-ST elevation microinfarction or unstable angina , S/P cardiac catheterization reporting no significant CAD, moderate aortic stenosis -Advanced COPD without any acute exacerbation -Hypertension -Type 2 diabetes mellitus with diabetic peripheral neuropathy -Hyperlipidemia -Coronary artery disease -Fibromyalgia -Chronic hypoxic, hypercapnic respiratory failure, oxygen dependent at home. -Morbid obesity, BMI 41.2 -History of nicotine dependence -7 mm arterial focus within the right hepatic lobe, incidental finding on CT , further follow-up outpatient per PCP. Hospital course:66-year-old pleasant female came in with complains of a chest pain and pressure like sensation which started today morning nonradiating in the retrosternal area in the left side, denied any increasing shortness of breath patient does have COPD uses 3 pillows which is not new patient denied any paroxysmal nocturnal dyspnea patient denied any excessive sweating patient' s face has a chest pain radiated to the jaw lasted for few hours not associated be breathing not associated with food. Patient was recently discharged from [facility] in [place] which she was admitted in ICU was intubated apparently had a pneumonia at the time was treated for respiratory failure and cardiorespiratory arrest from the patient's history, patient does have also independent COPD uses 2 L of oxygen at home. Patient at this point of time denied any cough runny nose chest x-ray did not show any pneumonic process. Patient apparently was told have a cardiac catheterization in [facility] at that time patient declined to get that test done. Patient denied any history of sleep apnea. Patient quit smoking years ago. EKG here showed T- wave inversion in the anterior leads lung with mildly elevated troponin of 0.03 cardiology evaluated the patient recommending cardiac catheterization. Underwent cardiac catheterization reporting no significant disease in the LAD, RCA, moderate aortic stenosis. Patient was recommended medical treatment. Chest x-ray reported no new acute pulmonary process. CT angios reported no evidence for PE, no aortic dissection , scattered groundglass opacity within the right upper and lower lobes. No focal consolidation, pleural effusion or pneumothorax. Cleared by both cardiology and pulmonary for discharge. Patient is being discharged home in a stable condition with guarded prognosis. General: Alert and oriented 3, no acute distress. CV: Regular S1 and S2, positive systolic murmur,LUNGS: Bilateral bases diminished.ABD: Soft, nontender , positive bowel sounds.NEURO: No focal deficit The impression and plan of care has been dictated as directed. : I performed a history and examination of this patient, discussed the same with the dictator. I agree with the dictator's note ,documented as a scribe. Any additional findings or plans will be noted. Time taken: 35 minutes Patient Condition at Discharge: Stable Plan - Discharge Summary New Discharge Prescriptions: New Losartan [Cozaar] 50 mg PO DAILY #30 tab predniSONE 10 mg PO DIRECTED #18 tab Continue ALPRAZolam [Xanax] 0.5 mg PO BID PRN PRN Reason: Anxiety Ergocalciferol [Vitamin D2 (DRISDOL)] 50,000 unit PO TU Cyanocobalamin (Vitamin B-12) [Vitamin B-12] 1,000 mcg PO DAILY Budesonide [Pulmicort] 0.5 mg INHALATION RT-BID traMADol HCl [Ultram] 50 mg PO BID Metoprolol Tartrate [Lopressor] 25 mg PO BID Gabapentin [Neurontin] 300 mg PO BID Acetaminophen Tab [Tylenol] 500 mg PO Q6H PRN PRN Reason: Pain Control Furosemide [Lasix] 20 mg PO DAILY Ipratropium-Albuterol Nebulize [Duoneb 0.5 mg-3 mg/3 ml Soln] 3 ml INHALATION RT-BID #0 Discontinued predniSONE 10 mg PO DIRECTED predniSONE See Taper PO DAILY Discharge Medication List ALPRAZolam [Xanax] 0.5 mg PO BID PRN 08/04/17 [History] Acetaminophen Tab [Tylenol] 500 mg PO Q6H PRN 08/04/17 [History] Budesonide [Pulmicort] 0.5 mg INHALATION RT-BID 08/04/17 [History] Cyanocobalamin (Vitamin B-12) [Vitamin B-12] 1,000 mcg PO DAILY 08/04/17 [ History] Ergocalciferol [Vitamin D2 (DRISDOL)] 50,000 unit PO TU 08/04/17 [History] Furosemide [Lasix] 20 mg PO DAILY 08/04/17 [History] Gabapentin [Neurontin] 300 mg PO BID 08/04/17 [History] Metoprolol Tartrate [Lopressor] 25 mg PO BID 08/04/17 [History] traMADol HCl [Ultram] 50 mg PO BID 08/04/17 [History] Ipratropium-Albuterol Nebulize [Duoneb 0.5 mg-3 mg/3 ml Soln] 3 ml INHALATION RT -BID #0 08/06/17 [Rx] Losartan [Cozaar] 50 mg PO DAILY #30 tab 08/06/17 [Rx] predniSONE 10 mg PO DIRECTED #18 tab 08/06/17 [Rx] Follow up Appointment(s)/Referral(s): Ángel Garza MD [STAFF PHYSICIAN] - 08/15/17 1:45 pm (Friday) Arsh Dunn MD [Primary Care Provider] - 08/09/17 (Friday will call the morning of the and notify you of time) Ambulatory/Diagnostic Orders: Complete Blood Count w/diff [LAB.AMB] Time Frame: 3 Days, Location: None Selected Patient Instructions/Handouts: *Surgery [facility] - After Heart Catheterization - [employer] Instructions, Chest Pain (DC), Left Heart Catheterization (DC) Activity/Diet/Wound Care/Special Instructions: Home Care - Accredited Home Care - [phone] 2 L nasal cannula O2 Discharge Disposition: HOME WITH HOME HEALTH SERVICES
== END 2017-08-06 17:03 | disposition home health service (06) | DRG 281 ==
LOC: EC 13:24 → 6SEL 14:45
PROVIDERS: ADMIT Internal Medicine; ATTEND Internal Medicine
PROC: B211YZZ Fluoroscopy of Multiple Coronary Arteries using Other Contrast (ICD-10-PCS; 2017-08-06)
PROC: 4A023N7 Measurement of Cardiac Sampling and Pressure, Left Heart, Percutaneous Approach (ICD-10-PCS; principal; 2017-08-06 11:00)
DX: I25.110 Atherosclerotic heart disease of native coronary artery with unstable angina pectoris (principal); I21.4 Non-ST elevation (NSTEMI) myocardial infarction; Z68.41 Body mass index [BMI] 40.0-44.9, adult; J96.11 Chronic respiratory failure with hypoxia; I50.32 Chronic diastolic (congestive) heart failure; J96.12 Chronic respiratory failure with hypercapnia; E11.42 Type 2 diabetes mellitus with diabetic polyneuropathy; E66.01 Morbid (severe) obesity due to excess calories; I11.0 Hypertensive heart disease with heart failure; J43.9 Emphysema, unspecified; I35.0 Nonrheumatic aortic (valve) stenosis; M79.7 Fibromyalgia; E78.5 Hyperlipidemia, unspecified; M19.91 Primary osteoarthritis, unspecified site; K76.9 Liver disease, unspecified; F41.9 Anxiety disorder, unspecified; Z79.891 Long term (current) use of opiate analgesic; Z99.81 Dependence on supplemental oxygen; Z86.74 Personal history of sudden cardiac arrest; Z79.51 Long term (current) use of inhaled steroids; Z79.52 Long term (current) use of systemic steroids; Z79.899 Other long term (current) drug therapy; Z87.01 Personal history of pneumonia (recurrent); Z87.891 Personal history of nicotine dependence; Z87.74 Personal history of (corrected) congenital malformations of heart and circulatory system; Z90.49 Acquired absence of other specified parts of digestive tract; Z88.5 Allergy status to narcotic agent; Z88.0 Allergy status to penicillin
CPT/HCPCS: 36415; 71046; 71275; 80053; 82550; 82553; 83735; 83880; 84484; 85025; 85379; 85610; 85730; 93005; 93306; 93458; 94640; 94760; 96365; 96376; 99285